=== PATIENT | male | born 1960 | race Caucasian/White ===

== ENCOUNTER 2019-11-05 06:34 | Outpatient (CLI) | payer OTHER ==
[2019-11-05 14:51] LABS: Hemoglobin 14.3 g/dL (14.0-18.0); Mean Corpuscular HGB CONC 33.4 g/dL (32.0-36.0); Mean Corpuscular Hemoglobin 30.2 pg (27.0-31.0); Mean Corpuscular Volume 90.3 fL (78.0-98.0); Mean Platelet Volume 8.9 fL (7.4-10.4); Platelet Count 237 thou/uL (130-400); RBC Distribution Width 12.4 % (11.5-14.5); Red Blood Cell (RBC) Count 4.72 mill/uL (4.70-6.10); White Blood Cell (WBC) Count 5.6 thou/uL (4.8-10.8)
[2019-11-05 14:59] LABS: INR-International Normal Ratio 0.9; PTT 28.7 SEC (22.9-36.1); Prothrombin Time 12.5 SEC (12.0-14.7)
[2019-11-05 15:02] LABS: Bacteria/HPF None Seen HPF (None Seen); Bilirubin Negative (Negative); Blood, Urine Negative (Negative); Clarity Clear (Clear); Glucose, Urine (Dipstick) Normal (Negative); Leukocyte Negative Leu/uL (Negative); Nitrite Negative (Negative); Protein, Urine (Dipstick) 20 mg/dL (Neg-Trace); RBC/HPF 0-3 HPF (0-3); Squamous Epithelial 0-3 HPF (0-3); WBC/HPF 0-3 HPF (0-3)
[2019-11-05 15:10] LABS: Anion Gap 12 mmol/L (10-20); BUN (Urea Nitrogen) 17 mg/dL (8.4-25.7); Calc. Creatinine Clearance 0 mL/min (70-130); Calcium 9.8 mg/dL (7.8-10.44); Carbon Dioxide 26 mmol/L (22-29); Chloride 106 mmol/L (98-107); Estimated GFR-MDRD 54; Glucose 127 mg/dL (70-105); Potassium 4.5 mmol/L (3.5-5.1); Sodium 139 mmol/L (136-145)
== END 2019-11-05 06:35 | disposition home or self-care (01) ==
LOC: LABBT 06:34
PROVIDERS: ATTEND Urology
DX: Z01.818 Encounter for other preprocedural examination (principal); Z12.5 Encounter for screening for malignant neoplasm of prostate; N40.1 Benign prostatic hyperplasia with lower urinary tract symptoms; R97.20 Elevated prostate specific antigen [PSA]; I10 Essential (primary) hypertension; R39.198 Other difficulties with micturition; Z86.19 Personal history of other infectious and parasitic diseases; Z87.442 Personal history of urinary calculi; Z98.890 Other specified postprocedural states; Z72.0 Tobacco use
CPT/HCPCS: 80048; 81001; 85027; 85610; 85730; 87086; 93005; 93010

== ENCOUNTER 2019-11-30 12:10 | Outpatient (CLI) | payer OTHER ==
[~2019-11-30 12:10] MED LIST: Magnevist 469MG/ML 20 ML VIAL ONE
--- NOTE | 2019-11-30 13:42 | MRI ---
MRI BRAIN WITH AND WITHOUT CONTRAST: INDICATION: Syncope. FINDINGS: Ventricles have normal size and position. No evidence of restricted diffusion. There is no mass or edema. There is no significant white matter abnormality. No abnormal enhancement identified. Intracranial internal carotid arteries and cerebral arteries show flow voids. Paranasal sinuses and mastoids appear clear. IMPRESSION: Unremarkable MRI of brain. POS: [facility]
== END 2019-11-30 12:11 | disposition home or self-care (01) ==
LOC: BICMRI 12:10
PROVIDERS: ATTEND Family Medicine
DX: R55 Syncope and collapse (principal)
CPT/HCPCS: 70553; A9579

== ENCOUNTER 2023-10-09 12:57 | Outpatient (CLI) | payer OTHER | END 2023-10-09 12:58 | disposition home or self-care (01) | LOC: MRI 12:57 | PROVIDERS: ATTEND Family Medicine | DX: H53.122 Transient visual loss, left eye (principal); I08.1 Rheumatic disorders of both mitral and tricuspid valves | CPT/HCPCS: 70553; 93306; 93880 ==

== ENCOUNTER 2024-08-15 11:58 | Inpatient (IN) | payer OTHER ==
[2024-08-15 12:51] LABS: #Basophils 0.03 10x3/uL (0.0-0.2); %Basophils 0.5 % (0.0-1.0); %Eosinophils 3.3 % (0.0-10.0); %Lymphocytes 22.1 % (21.0-51.0); %Monocytes 11.9 % (0.0-10.0); %Neutrophils 61.7 % (42.0-75.0); Hematocrit 20.4 % (42.0-52.0); Hemoglobin 6.5 g/dL (14.0-18.0); Mean Corpuscular HGB CONC 31.9 g/dL (32.0-36.0); Mean Corpuscular Hemoglobin 26.5 pg (27.0-31.0); Mean Corpuscular Volume 83.3 fL (78.0-98.0); Mean Platelet Volume 9.3 fL (7.4-10.4); Platelet Count 397 10x3/uL (130-400); RBC Distribution Width 16.2 % (11.5-14.5); Red Blood Cell (RBC) Count 2.45 mill/uL (4.70-6.10)
[2024-08-15 13:06] LABS: INR-International Normal Ratio 1.1; Prothrombin Time 14.2 sec (12.0-14.7)
[2024-08-15 13:07] LABS: PTT 32.3 sec (22.9-36.1)
[2024-08-15 13:08] LABS: ALT (SGPT) 36 U/L (8-55); AST (SGOT) 25 U/L (5-34); Albumin 3.2 g/dL (3.4-4.8); Alkaline Phosphatase 62 U/L (40-110); Anion Gap 15 mmol/L (10-20); BUN (Urea Nitrogen) 48 mg/dL (8.4-25.7); Bilirubin, Total 0.2 mg/dL (0.2-1.2); Calc. Creatinine Clearance 0 mL/min (70-130); Calcium 8.9 mg/dL (7.8-10.44); Carbon Dioxide 18 mmol/L (23-31); Chloride 110 mmol/L (98-107); Estimated GFR 26; Globulin 2.8 g/dL (2.4-3.5); Glucose 115 mg/dL (80-115); Sodium 138 mmol/L (136-145)
[2024-08-15 13:12] LABS: Troponin I 0.018 ng/mL (< 0.028)
[2024-08-15] MEDS ORDERED: hydrALAZINE 20 MG/ML VIAL SLOW IVP PRN (14:34)
[2024-08-15] MEDS ORDERED: Ondansetron PF 4 MG/2 ML Vial IVP PRN (14:34)
[2024-08-15] MEDS ORDERED: Acetaminophen 325 MG TAB PO PRN (14:34)
[2024-08-15 16:04] VITALS: BMI 19.1
[2024-08-15 17:32] LABS: Hemoglobin 6.8 g/dL (14.0-18.0); Platelet Count 337 10x3/uL (130-400)
[2024-08-15] MEDS: GoLYTELY 4,000 ml Bottle PO SCH (18:41)
[2024-08-15 20:38] LABS: Hematocrit 24.7 % (42.0-52.0); Hemoglobin 8.1 g/dL (14.0-18.0); Platelet Count 380 10x3/uL (130-400)
[2024-08-15] MEDS: Pantoprazole 40 MG VIAL IVP SCH (21:24)
[2024-08-16 01:10] LABS: Hematocrit 20.2 % (42.0-52.0); Hemoglobin 6.8 g/dL (14.0-18.0); Platelet Count 292 10x3/uL (130-400)
[2024-08-16 05:19] LABS: #Basophils Less than 0.03 10x3/uL (0.0-0.2); %Basophils 0.4 % (0.0-1.0); %Lymphocytes 26.7 % (21.0-51.0); %Monocytes 13.6 % (0.0-10.0); %Neutrophils 54.7 % (42.0-75.0); Hematocrit 20.5 % (42.0-52.0); Hemoglobin 6.9 g/dL (14.0-18.0); Mean Corpuscular HGB CONC 33.7 g/dL (32.0-36.0); Mean Corpuscular Hemoglobin 27.3 pg (27.0-31.0); Mean Platelet Volume 9.5 fL (7.4-10.4); Platelet Count 312 10x3/uL (130-400); RBC Distribution Width 15.4 % (11.5-14.5); Red Blood Cell (RBC) Count 2.53 mill/uL (4.70-6.10)
[2024-08-16 05:50] LABS: Anion Gap 15 mmol/L (10-20); BUN (Urea Nitrogen) 45 mg/dL (8.4-25.7); Calc. Creatinine Clearance 27 mL/min (70-130); Calcium 8.3 mg/dL (7.8-10.44); Carbon Dioxide 20 mmol/L (23-31); Chloride 109 mmol/L (98-107); Estimated GFR 25; Glucose 100 mg/dL (80-115); Sodium 140 mmol/L (136-145)
[2024-08-16 10:07] VITALS: BMI 19.1
[2024-08-16] MEDS ORDERED: PROPOFOL 20 ML ONE ×2 (12:18→12:24)
[2024-08-16] MEDS ORDERED: Lidocaine 2% PF 5 ML VIAL ONE (12:19)
[2024-08-16] MEDS ORDERED: PROPOFOL 200 MG/20 ML VIAL ONE (12:57)
[2024-08-16 16:21] LABS: Hematocrit 21.2 % (42.0-52.0); Hemoglobin 7.1 g/dL (14.0-18.0)
[2024-08-17 06:03] LABS: Hematocrit 22.6 % (42.0-52.0); Hemoglobin 7.6 g/dL (14.0-18.0); Mean Corpuscular HGB CONC 33.6 g/dL (32.0-36.0); Mean Corpuscular Hemoglobin 27.9 pg (27.0-31.0); Mean Corpuscular Volume 83.1 fL (78.0-98.0); Platelet Count 268 10x3/uL (130-400); Red Blood Cell (RBC) Count 2.72 mill/uL (4.70-6.10)
[2024-08-17 06:21] LABS: Anion Gap 13 mmol/L (10-20); BUN (Urea Nitrogen) 34 mg/dL (8.4-25.7); Calc. Creatinine Clearance 33 mL/min (70-130); Calcium 8.1 mg/dL (7.8-10.44); Carbon Dioxide 20 mmol/L (23-31); Chloride 109 mmol/L (98-107); Estimated GFR 32; Glucose 94 mg/dL (80-115); Potassium 4.2 mmol/L (3.5-5.1); Sodium 138 mmol/L (136-145)
[2024-08-17] MEDS: Ezetimibe 10 MG TAB PO SCH (08:34)
[2024-08-17] MEDS: Amlodipine 5 MG TAB PO SCH (08:34)
[2024-08-18 05:52] LABS: Hematocrit 22.2 % (42.0-52.0); Hemoglobin 7.5 g/dL (14.0-18.0); Mean Corpuscular HGB CONC 33.8 g/dL (32.0-36.0); Mean Corpuscular Hemoglobin 28.5 pg (27.0-31.0); Mean Corpuscular Volume 84.4 fL (78.0-98.0); Mean Platelet Volume 8.9 fL (7.4-10.4); Platelet Count 295 10x3/uL (130-400); RBC Distribution Width 15.1 % (11.5-14.5); Red Blood Cell (RBC) Count 2.63 mill/uL (4.70-6.10)
[2024-08-18 07:08] LABS: Anion Gap 12 mmol/L (10-20); BUN (Urea Nitrogen) 31 mg/dL (8.4-25.7); Calc. Creatinine Clearance 32 mL/min (70-130); Calcium 8.4 mg/dL (7.8-10.44); Carbon Dioxide 22 mmol/L (23-31); Chloride 108 mmol/L (98-107); Estimated GFR 31; Glucose 101 mg/dL (80-115); Potassium 4.3 mmol/L (3.5-5.1); Sodium 138 mmol/L (136-145)
[2024-08-18 07:49] VITALS: BP 132/81; TEMP 98
== END 2024-08-18 16:20 | disposition home or self-care (01) | DRG 393 ==
LOC: ERS 11:58 → ERHOLD 13:56 → T4-A 15:32
PROVIDERS: ADMIT Internal Medicine; ATTEND Internal Medicine
PROC: 30233N1 Transfusion of Nonautologous Red Blood Cells into Peripheral Vein, Percutaneous Approach (ICD-10-PCS; 2024-08-15)
PROC: 0DJ08ZZ Inspection of Upper Intestinal Tract, Via Natural or Artificial Opening Endoscopic (ICD-10-PCS; principal; 2024-08-16)
PROC: 0DBB8ZX Excision of Ileum, Via Natural or Artificial Opening Endoscopic, Diagnostic (ICD-10-PCS; 2024-08-16)
DX: K63.3 Ulcer of intestine (principal); K57.31 Diverticulosis of large intestine without perforation or abscess with bleeding; D62 Acute posthemorrhagic anemia; N17.9 Acute kidney failure, unspecified; K92.1 Melena; E78.00 Pure hypercholesterolemia, unspecified; I73.9 Peripheral vascular disease, unspecified; I12.9 Hypertensive chronic kidney disease with stage 1 through stage 4 chronic kidney disease, or unspecified chronic kidney disease; N18.30 Chronic kidney disease, stage 3 unspecified; K64.8 Other hemorrhoids; K64.4 Residual hemorrhoidal skin tags; Z90.89 Acquired absence of other organs; Z86.73 Personal history of transient ischemic attack (TIA), and cerebral infarction without residual deficits; Z98.890 Other specified postprocedural states; Z87.891 Personal history of nicotine dependence
CPT/HCPCS: 36415; 36430; 80048; 80053; 83880; 84484; 85014; 85018; 85025; 85027; 85049; 85610; 85730; 86850; 86900; 86901; 88305; 93005; 99285; J2470; J2704; P9016

== ENCOUNTER 2024-09-27 12:25 | Outpatient (CLI) | payer BC | END 2024-09-27 12:26 | disposition home or self-care (01) | PROVIDERS: ATTEND Psychiatry & Neurology Neurology | DX: I63.9 Cerebral infarction, unspecified (principal) | CPT/HCPCS: 93225; 93226 ==

== ENCOUNTER 2025-06-29 11:23 | Outpatient (CLI) | payer BC | END 2025-06-29 11:24 | disposition home or self-care (01) | LOC: RAD 11:23 | PROVIDERS: ATTEND Internal Medicine Nephrology | DX: N18.5 Chronic kidney disease, stage 5 (principal) | CPT/HCPCS: 71046 ==